=== PATIENT | male | born 1945 | race Caucasian/White ===

== ENCOUNTER → 2018-03-03 | Outpatient (CLI) | payer OTHER ==
--- NOTE | 2018-03-03 11:43 | NOWCEV ---
[facility] OUTPATIENT REHABILITATION SERVICES WHEELCHAIR CLINIC EVALUATION AND LETTER OF JUSTIFICATION Patient Name: RAJESH HARRIS Physician: HI Hernandez Date: 03/03/18 Therapist: Letty Lovell PT,MSPT Date of : 1945 MR#: [id number] Contact: [] Subscriber: RAJESH HARRIS Primary Ins: [employer] Subscriber #: [id number] EVALUATION FINDINGS Medical history - Rajesh is a 72y/o male with cerebral palsy (CP), as well as a PMH significant for CHF and a pacemaker. He also has significant OA in his L knee. Rajesh has been utilizing a PWC to access all MRADLs in his home for the past 8 years. His current chair is 8 years old and is deteriorating to the point where it is no longer meeting his needs due to constant daily use. Rajesh was referred to this clinic by his doctor to have recommendations made for the most medically appropriate PWC to meet his needs in the home. Functional Mobility - Rajesh is unable to ambulate, even with an AD such as walker, cane, or crutches. Rajesh utilizes his PWC for all mobility in the home and to access all MRADLs to access the bathroom, bedroom, and kitchen. Rajesh required moderate assistance to complete a squat pivot transfer to/from his PWC. Throughout transfer he pushes strongly backward throughout his LEs and trunk. Rajesh is unable to functionally stand to perform activities in standing. He reports that is is able to stand pulling his body up on a grab bar which he does for exercise throughout the day. Rajesh required min A for LE management to sit to sup transitions. Motor involvement - Rajesh has significant motor involvement of bother his UEs and LEs due to his CP. He has limited ROM in B LEs and UEs. R DF: -48deg, L DF : -3deg, R hip flexion: 95deg, L hip flexion: 90deg, B knee extension: -28deg, and he has limited L hip ER. B shoulder flexion is ~80deg B. He has deformities in B hands and maintains B wrists in flexion, although he is able to almost achieve neutral wrist extension. He has decreased motor control throughout his UEs and LEs. Strength is as follows: B shoulder flexion and abd is 3+/5 within available range, all MMT in LEs is </= 4-/5 in B LEs. Rajesh is hypertonic in B LEs. Posture - Rajesh sits with a pelvic obliquity where his L ilium is lower than his R causing increased pressure under his L ischial tuberosity. He has a significant posterior pelvic tilt with a reversal of his lumbar lordosis and his LEs are somewhat windswept tot he R. He has a rotation in his pelvis and his R hip is anterior to his L. He has a thoracic kyphosis and forward head. His R foot is plantarflexed and inverted so it does not sit flat on his foot plate. Skin Sensation - Rajesh reports that he has a h/o skin breakdown under his L ischial tuberosity where his "skin was broken". He does not have pressure sores at this time. Rajesh does experience intermitted bladder incontinence. Endurance - Rajesh is typically up in his PWC for the majority of the day. ADLs - Rajesh relies on his caregiver for activities such as dressing, bathing, meal prep and cleaning. He access all MRADLs in the home with use of his PWC, and performs activities such as washing up, and meals from a wheelchair level. Cognitive/Social - Rajesh lived alone in a wheelchair accessible home. He has daily caregiver assistance, 4hours/day, to assist with dressing, bathing, meal prep, cleaning and mobility as needed. Current wheelchair - Rajesh's current chair is a [employer] 6000 with a intouch Flovair cushion and invicare back. He wheelchair and seating system are both 8y /o and showing age related deterioration. His current seating system is no longer maintaining the position of his pelvis and causes him to slide forward in his chair placing him at increased risk for further pressure ulcers. Additionally, his current chair does not have any upgraded seating functions such as a [id number]. Since Rajesh is unable to perform adequate pressure relief independently, this again places him at increased risk for further skin breakdown. MEDICAL and FUNCTIONAL NEED/OBJECTIVES To replace Rajesh's current custom PWC and seating system which has deteriorated to ensure his ability to maintain independent access to MRADLs in the home, and to allow for appropriate pressure distribution and relief to decrease risk of further skin breakdown in the future. PRIMARY FUNCTIONAL LIMITATION (G Code) * Mobility CURRENT STATUS OF PRIMARY FUNCTIONAL LIMITATION (Severity Modifier) * At least 60 percent but less than 80 percent impaired, limited or restricted ( CL) GOAL STATUS OF PRIMARY FUNCTIONAL LIMITATION (Severity Modifier) * At least 60 percent but less than 80 percent impaired, limited or restricted ( CL) DISCHARGE STATUS OF PRIMARY FUNCTIONAL LIMITATION (Severity Modifier) * At least 60 percent but less than 80 percent impaired, limited or restricted ( CL) EQUIPMENT RECOMMENDATIONS AND JUSTIFICATIONS The following recommendations are believed to be the most cost effective way to meet the patients medical and functional needs. * Group 3 power base: * Power [id number]: * Expandable harness: * Skin protection positioning cushion: * Posterior positioning backrest: * Swing away joystick: Needed to allow joystick to be moved so that it does not interfere with transfers. Additionally needed to allow Rajesh to pull his PWC closely up to surfaces to complete ADLs from his chair so he does not have to reach, as he has limited UE strength and ROM. * Headrest with removable mount: Needed to support Rajesh's head when utilizing the [id number] function on his chair for regular pressure relief. The removable mount is needed so the end rest can be removed so it does not interfere with assisted ADLs. * Height adjustable arm rests: * Transit tie downs: Needed to secure Rajesh's chair when he is utilizing public transit to access medical appointments. These recommendations are based on the likelihood that Rajesh will require the use of a PWC for household mobility to access MRADLs for the rest of his life. If you have any questions or concerns regarding the stated recommendations, please feel free to contact the therapist at . Thank you for your cooperation in obtaining the necessary equipment for this patient. BLAIR Graham
== END ==
PROVIDERS: ATTEND Physician Assistant
DX: Z46.89 Encounter for fitting and adjustment of other specified devices (principal); G80.9 Cerebral palsy, unspecified; I50.9 Heart failure, unspecified; Z95.0 Presence of cardiac pacemaker; M17.12 Unilateral primary osteoarthritis, left knee
CPT/HCPCS: 97162; G8978; G8979; G8980

== ENCOUNTER → 2018-09-02 | Outpatient (CLI) | payer OTHER ==
[~2018-09-02] MED LIST: IOPAMIDOL (ISOVUE-300) 200 ML BTL ONE
== END | disposition home or self-care (01) ==
LOC: FIMAGING 14:05
PROVIDERS: ATTEND Physician Assistant Medical
DX: N32.81 Overactive bladder (principal); R31.0 Gross hematuria; N20.0 Calculus of kidney; N40.0 Benign prostatic hyperplasia without lower urinary tract symptoms; K59.00 Constipation, unspecified
CPT/HCPCS: 74178; Q9967; 82565-PO

== ENCOUNTER 2018-12-01 08:34 | Emergency (ER) | payer OTHER ==
--- NOTE | 2018-12-01 09:06 | EDPHY ---
H & P Time Seen by Provider: 12/01/18 09:06 HPI/ROS: CHIEF COMPLAINT: Constipation HISTORY OF PRESENT ILLNESS: Patient taking prunes and yesterday magnesium citrate but no bowel movement for 12 days. Patient states to me "I need an enema" but he is not having abdominal pain, no nausea vomiting. When pressed he says sometimes the left side of his abdomen hurts a little bit. Decreased urination today. No back pain. Symptoms moderate. Not associated with fever or chills. REVIEW OF SYSTEMS: Eye: no change in vision ENT: no sore throat Cardiac: no chest pain or syncope Pulmonary: no cough or SOB Abdomen: no vomiting, diarrhea, abdominal pain Musculoskeletal: no back pain Skin: no rash Neuro: no headache Constitutional: no fever : no urinary symptoms A comprehensive 10 point review of systems is otherwise negative aside from elements mentioned in the history of present illness. PAST MEDICAL HISTORY: Includes pneumonia, pacemaker, cerebral palsy. No history of previous abdominal surgery. Social history: Here with caregiver General Appearance: Alert and conversant, cooperative. Eyes: No scleral icterus. ENT, Mouth: Normal mucous membranes. Respiratory: Normal respiratory effort, breath sounds equal, lungs are clear to auscultation. Cardiovascular: Regular rate and rhythm. Gastrointestinal: Abdomen is soft and non tender. Rectal exam by myself shows large amount of very hard stool in the rectal vault manually disimpacted by myself personally. Neurological: Alert, able to answer questions appropriately, can help roll and transfer and change position in the bed. Skin: Warm and dry, no rashes. Musculoskeletal: Flexion contractures in both hands and both legs. Psychiatric: Not agitated. Emergency Department course/MDM: Patient presents with constipation which is verified clinically on exam with a large amount of hard stool in the rectal vault. Manually disimpacted by myself. Postvoid bladder scan shows no significant urinary retention. Home with symptomatic treatment, can try MiraLax next. Smoking Status: Never smoked Constitutional: Initial Vital Signs Temperature (C) 36.5 C 12/01/18 08:41 Heart Rate 81 12/01/18 08:41 Respiratory Rate 18 12/01/18 08:41 Blood Pressure 114/73 12/01/18 08:41 O2 Sat (%) 92 12/01/18 08:41 O2 Delivery Mode Room Air O2 (L/minute) 2 Allergies/Adverse Reactions: No Known Allergies Allergy (Verified 02/03/14 08:07) Home Medications: Medication Instructions Recorded Aspirin [Aspirin 81mg (*)] 81 mg PO DAILY 09/30/11 Tamsulosin HCl [Flomax 0.4 MG (*)] 0.4 mg PO DAILY8 09/30/11 Acetaminophen [Tylenol ES 500 mg 1,000 mg PO HS 10/24/13 (*)] Acetaminophen [Tylenol ES 500 mg 500 mg PO DAILY 10/24/13 (*)] Cetirizine [ZyrTEC 10 mg (*)] 10 mg PO DAILY PRN 10/24/13 Fluticasone Hfa 44 Mcg [Flovent 44 2 puffs IH DAILY 10/24/13 MCG Hfa MDI (*)] Venlafaxine HCl [Venlafaxine HCl 37.5 mg PO DAILY 10/24/13 ER] Diazepam [Valium 2 MG (*)] 4 mg PO HS 02/03/14 Amoxicillin/Clavulanate Pot 875 mg PO BID #10 tab 02/08/14 [Augmentin 875 MG TAB (*)] Benzonatate [Tessalon Pearles] 100 mg PO TID PRN #20 cap 02/08/14 Esomeprazole Mag Trihydrate 40 mg PO BID #60 capsule. 02/08/14 [Nexium] Medical Decision Making Differential Diagnosis: I think it is unlikely that he has perirectal abscess, bowel obstruction, diverticulitis, appendicitis. Departure - Departure Disposition: Home, Routine, Self-Care Clinical Impression: Constipation Condition: Good Instructions: Constipation (ED) Additional Instructions: you can also try Miralax, the same oral preparation used prior to colonoscopy. OTC at the pharmacy; mix and drink up to 2 quarts of the prep to try and stimulate bowel movement. Referrals: Shasta Meier PA [Primary Care Provider] - As per Instructions
[2018-12-01 10:46] VITALS: BP 141/85
== END 2018-12-01 10:44 | disposition home or self-care (01) ==
DX: K59.00 Constipation, unspecified (principal); G80.9 Cerebral palsy, unspecified; Z95.0 Presence of cardiac pacemaker